=== PATIENT | male | born 1950 | race Caucasian/White ===

== ENCOUNTER 2022-01-05 11:00 | Outpatient (RCR) | payer MEDICARE, OTHER, SELFPAY ==
--- NOTE | 2021-12-17 14:02 | OTOPEVAL ---
OCCUPATIONAL THERAPY INITIAL EVALUATION: 12/17/2021 Thank you for referring Miguel Voss to [facility] The patient is scheduled to be seen for therapy? 1-2x/week for 4 weeks. Please review, sign, date and return this plan of care WENCESLAO. I agree with and certify that the following plan of care is medically necessary. 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 Patient's reports went to [facility] for inpatient rehab. Subjective Information Patient reports is able to Query Text:As Reported By Patient/ complete all ADLs Family independently, biggest deficit is difficulties with vision including not being able to see screen of cell phone or apps on screen. Patient's reports is trying to make an appointment with a neuro outsole caser at [facility]. Patient reports difficulties with some IADLs tasks including medication management, driving, laundry, cooking tasks that have become difficult due to vision cut. Prior Level of Function Activity Level (Last 3 Months) Hand Dominance Right Activity of Daily Living Ability Independent Indoor/Home Mobility Independent Community Mobility Independent Stairs Ability Independent Cooking No Cleaning Yes Laundry Yes Shopping No Driving No Comments Additional Prior Level of Function Patient reports is independent Comments with ADLs, use to be able to complete IADLs including driving, medication management , laundry, cooking tasks that have become difficult due to vision cut Pain Assessment Timing of Pain Assessment Timing of Pain Assessment Assessment Pain Scale Pain
--- NOTE | 2021-12-17 15:15 | STOPEVAL ---
COGNITIVE EVALUATION Thank you for referring Miguel Voss to [facility].? The patient is scheduled to be seen for therapy? 1x/ 1 week and 2x/week for 3 weeks. Please review, sign, date and return this plan of care WENCESLAO. I agree with and certify that the following plan of care is medically necessary. Referring Physician Date Attending Provider: Chano Montaño Referring Provider: Chano Montaño Therapy Assessment Status Assessment Status Assessment Status Evaluation Outpatient Past Medical History Past Medical History Source of Past Medical History Patient Neurological History Hx Cerebrovascular Accident (CVA) Yes: 11/12/21 Evaluation Information Problem Onset 11/12/21 Cause CVA Subjective Information Patient was outside weeding, Query Text:As Reported By Patient/ 11/10, took a shower, sat down Family with and had trouble seeing his phone. Patient had a hemorrhage in the back side of the head affecting his right-eye vision. Patient initially had loss use of everything, aphasia, balance issues. Has appointment for repeat MRI 01/15 and will be seeing a neuroopthamologist at [facility] eventually. Had been in ICU for one week and then [facility] for three weeks. Pain Assessment Timing of Pain Assessment Timing of Pain Assessment Assessment Self Report Self Report Pain Level 0 Pain Score Pain Score 0: Self Report Cognitive Evaluation Orientation/Memory Assessment Immediate Memory 79 Query Text:% Accuracy Recent Memory 80 Query Text:% Accuracy Prospective Memory 80 Query Text:% Accuracy Temporal Orientation 80 Query Text:% Accuracy Spatial/Environmental Orientation 90 Query Text:% Accuracy Overall Orientation and Memory Mild Deficits Orientation/Memory Comments Most difficulty was noted in following lengthy and complex directions, and knowing the year. He was aware that this location is a place for practicing things but unable to express the name of the hospital or therapy/ rehabilitation. Problem Solving Simple Problem Solving: Percent of 100 Accuracy 0-100 (%) Complex Problem Solving: Percent of 100 Accu
--- NOTE | 2021-12-25 10:02 | PTOPEVAL ---
PHYSICAL THERAPY EVALUATION AND DISCHARGE Thank you for referring Miguel Voss to [facility].? Please review, sign, date and return this plan of care WENCESLAO. I agree with and certify that the following plan of care is medically necessary. Referring Physician Date Attending Provider: Chano Montaño Diagnosis CVA Onset 11/12/21 Cause CVA Additional Evaluation Detail On November 12, 2021 had a brain hemorrhage with a R field vision cut. Patient's reports went to [facility] for inpatient rehab. Subjective Information Patient was outside weeding, Query Text:As Reported By Patient/ 11/10, took a shower, sat down Family with and had trouble seeing his phone. Patient had a hemrrhage in the back side of the head affecting his right-eye vision. Patient initially had loss use of everything, aphasia, balance issues. Has appointment for repeat MRI 01/15 and will be seeing a neuroopthamologist at [facility] eventually. Had been in ICU for one week and then [facility] for three weeks. Was using a yovana for 5 days and is now walking without a device. No falls. One loss of balance where he caught himself. Will use gait belt in new environments. 5 steps to enter home General Lower Extremity Strength Gross Lower Extremity Strength grossly 4+ to 5/5 bilateral and symmetrical strength Balance Assessment Baxter Balance Assessment: 53/56 5 Time Sit to Stand Time in Seconds 10.68 Dynamic Gait Index: 24/ Gait Assessment 6 Minute Walk Total Distance (feet) 1,144 6 Minute Walk Gait Speed Score (feet/ 3.17 second) Stair Climbing Assessment Stair Climbing Assessment Stair Climbing Assistive Devices Railings Weight Bearing Status - Left Full Weight Bearing Status - Right Full Number of Steps Climbed (Steps) 4 Number of Repetitions (Repetitions) 2 Technique Alternating Steps Stair Climbing Ability Independent Ability to Step Over a Curb Independent Stair Climbing Comments cues to slow down and look due to hemianopia PT Clinical Summary
--- NOTE | 2022-01-05 11:37 | OTOPEVAL ---
OCCUPATIONAL THERAPY RE-EVALUATION AND D/C NOTE 01/05/22 Patient presents for OT re-evaluation after 4 sessions focused on visual field and visual perceptual retraining, compensatory strategies, and HEP instruction. Patient has progressed well with his awareness of the right visual field cut as well as utilizing compensatory strategies. He and his are independent with his home program and are in agreement with discharge. Thank you for referring Miguel Voss to [facility]. Please review, sign, date and return this D/C Note WENCESLAO. I agree with and certify that the following plan of care is medically necessary. Referring Physician Date Referring Provider: Chano Montaño MD Evaluation Information Problem Diagnosis CVA Onset 11/12/21 Subjective Information Patient reports independence Query Text:As Reported By Patient/ with ADLs. Has been making Family good progress with IADLs such as laundry and cooking tasks. They state that the neuro line supply testing showed a right visual field cut that will not come back with time. Rehab focus has been on compensatory strategies to increase visual field cut awareness and he has done excellent with these. present at all appts and helping with home programs. Pain Assessment Timing of Pain Assessment Timing of Pain Assessment Re-assessment Self Report Self Report Pain Level 0 Pain Score Pain Score 0: Self Report Visual Screening Visual Perception Assessment Visual Field Right Field Cut Visual Screening Visual Toribio - Line Bisection Within Normal Limits Visual Screening Comments Trails A - Completed in 2 min and 53 seconds; Unable to complete with a 5 min. cap at the evaluation. Visual Perceptual Activity Visual-Perceptual Activity Closure Activities Other Visual-Perceptual Activity MVPT for visual closure Visual Perceptual Accuracy (% Accuracy) 46 Visual-Perceptual Comments Improved from 15% accuracy. OT Clinical Summary OT Clinical Summary Patient presents for OT re- evaluation after 4 sessions focused on visual field and visual perceptual retraining, compensatory strategies, and HEP instruction. Patient has progressed well with his awareness of the right visual field cut as well as utilizing
--- NOTE | 2022-01-06 08:37 | STOPEVAL ---
Thank you for referring Miguel Voss to [facility].? This patient has been seen for four sessions of Speech Therapy; he is being discharged with goals essentially achieved and home program established. Please see Clinical Summary. I understand patient has achieved goals and been discharged from skilled Speech Therapy. Referring Physician Date Attending Provider: Chano Montaño Referring Provider: Chano Montaño Therapy Assessment Status Assessment Status Assessment Status Discharge Outpatient Past Medical History Past Medical History Source of Past Medical History Patient Neurological History Hx Cerebrovascular Accident (CVA) Yes: 11/12/21 Gastrointestinal History Pain Assessment Timing of Pain Assessment Timing of Pain Assessment Pre-Treatment Self Report Self Report Pain Level 0 Pain Score Pain Score 0: Self Report ST Clinical Summary Clinical Summary ST Clinical Summary Patient was seen for an Initial Speech Therapy evaluation and then three follow up treatments focusing on orientation to time, immediate memory for lengthy word lists and paragraph stories, functional math problems, and visual scanning for letters/words. Patient exhibited good attention and cooperation and made progress in all areas except in the area of recalling paragraph level information. Patient and requested discharge since home program was established and they are concentrating on returning to their home in [place] in the near future. Patient was discharged with all goals achieved except for the area of recall of paragraph level information. Thank you for this referral.
== END 2022-03-02 10:18 | disposition home or self-care (01) ==
LOC: ANHOT 11:00
DX: I69.998 Other sequelae following unspecified cerebrovascular disease (principal); I69.910 Attention and concentration deficit following unspecified cerebrovascular disease; R26.89 Other abnormalities of gait and mobility
CPT/HCPCS: 92507; 92523; 97110; 97112; 97162; 97165; 97530